=== PATIENT | male | born 1970 | race Hispanic/Latino ===

== ENCOUNTER 2022-03-23 16:28 | Inpatient (IN) | payer OTHER ==
[2022-03-23] VITALS (23 sets, daily range): BP systolic 90–189; BP diastolic 56–126
[~2022-03-23] VITALS: Ht 152.4 cm; Wt 76.7 kg
[2022-03-23] MEDS ORDERED: NITROGLYCERIN 50MG VIAL ONE (17:52)
[2022-03-23] MEDS ORDERED: IOHEXOL-350 50ML VIAL IV ONE (17:52)
[2022-03-23] MEDS ORDERED: BIVALIRUDIN 250 MG/VIAL IV ONE (17:52)
[2022-03-23] MEDS ORDERED: HEPARIN 10,000 UNIT/10ML (1,000 UNIT/ML) VIAL ONE (17:52)
[2022-03-23] MEDS ORDERED: IOHEXOL 350 MG/ML 100ML INFUS..BTL IV ONE (17:53)
[2022-03-23] MEDS ORDERED: LIDOCAINE HCL 400MG/20ML VIAL ONE (17:53)
[2022-03-23] MEDS ORDERED: NICARDIPINE 25MG INJ 25 MG in 0.9% NACL 250ML 240 ML IV STA (18:57)
[2022-03-23] MEDS ORDERED: FENTANYL CITRATE PF 50 MCG/1 ML 2ML VIAL ONE (18:59)
[2022-03-23] MEDS ORDERED: FENTANYL CITRATE PF 50 MCG/1 ML 2ML VIAL IVP SCH (19:00)
[2022-03-23] MEDS ORDERED: FENTANYL 2500MCG+NS 250ML 250 ML IV ONE (19:05)
[2022-03-23] MEDS ORDERED: FUROSEMIDE 20MG VIAL ONE (19:05)
[2022-03-23] MEDS ORDERED: PROPOFOL 1000 MG/100 ML IV STA (19:14)
[2022-03-23] MEDS ORDERED: HEPARIN 25,000 UNITS/250ML D5W 250 ML IV STA (19:14)
[2022-03-23] MEDS ORDERED: ONDANSETRON 4MG INJ IVP PRN (19:30)
[2022-03-23] MEDS ORDERED: POTASSIUM CHLORIDE 20MEQ/100ML 100 ML IV PRN (19:30)
[2022-03-23] MEDS ORDERED: FUROSEMIDE 20MG VIAL IV ONE (19:30)
[2022-03-23] MEDS ORDERED: MAGNESIUM 2GM PREMIX 50ML 50 ML IV SCH (19:30)
[2022-03-23] MEDS ORDERED: [UNRECOGNIZED DRUG - REMARK] MISC SCH (19:30)
[2022-03-23] MEDS ORDERED: FUROSEMIDE 40MG VIAL IV ONE (19:30)
[2022-03-23] MEDS ORDERED: ACETAMINOPHEN 325 MG TAB PO PRN (19:30)
[2022-03-23] MEDS ORDERED: POTASSIUM CHLORIDE 10% ELIXIR 20 MEQ/15 ML UDCUP PO PRN (19:30)
[2022-03-23] MEDS ORDERED: LIDOCAINE HCL-MPF 1% 2ML VIAL IV PRN (19:30)
[2022-03-23] MEDS ORDERED: KCL 20 MEQ ERTAB PO PRN (19:30)
[2022-03-23] MEDS ORDERED: FENTANYL 2500MCG+NS 250ML IV.SOLN IV SCH (19:30)
[2022-03-23] MEDS ORDERED: POTASSIUM PHOSPHATE 15 MMOL in 0.9% NACL 250ML 250 ML IV SCH (19:30)
[2022-03-23 20:00] LABS: ABG BASE EXCESS -7.6 mmol/L (-2.0-3.0); ABG HCO3 24.5 mmol/L (21.0-28.0); ABG PCO2 84 mmHg (35-48)
[2022-03-23] MEDS ORDERED: PHARMACY COMMUNICATION MISC SCH (20:00)
[2022-03-23 20:15] LABS: HEMATOCRIT 56.8 % (42-54); MEAN CORPUSCULAR HEMOGLOBIN 30.5 pg (27.0-33.0); MEAN CORPUSCULAR HGB CONC 32.2 g/dL (32.0-36.0); MEAN CORPUSCULAR VOLUME 94.7 fL (79-99); RED CELL DISTRIBUTION WIDTH 12.8 % (11.0-15.5); WHITE BLOOD COUNT (AUTO) 23.2 K/uL (4.8-10.8)
[2022-03-23 20:46] LABS: CREATININE 3.5 mg/dL (0.5-1.5); PHOSPHORUS 5.5 mg/dL (2.5-4.9); POTASSIUM 4.3 mmol/L (3.5-5.1)
[2022-03-23] MEDS: PROPOFOL 1000 MG/100 ML IV PRN (21:07)
[2022-03-23] MEDS: LEVOFLOXACIN 250 MG/D5W 50ML 50 ML IVPB SCH (22:09)
[2022-03-23] MEDS: METRONIDAZOLE 500MG/100ML BAG 100 ML IVPB SCH (22:09)
[2022-03-23 22:48] LABS: ABG BASE EXCESS -8.2 mmol/L (-2.0-3.0); ABG HCO3 20.1 mmol/L (21.0-28.0); ABG OXYGEN SATURATION 91.3 % (95.0-99.0); ABG PCO2 51 mmHg (35-48)
[2022-03-23 23:53] LABS: AMPHET/METH SCREEN,URINE NEGATIVE (NEGATIVE); BARBITURATE SCREEN, URINE NEGATIVE (NEGATIVE); BENZODIAZEPINES SCREEN,URINE NEGATIVE (NEGATIVE); CANNABINOID SCREEN,URINE NEGATIVE (NEGATIVE); COCAINE SCREEN,URINE NEGATIVE (NEGATIVE); PHENCYCLIDINE SCREEN,URINE NEGATIVE (NEGATIVE)
[2022-03-24] VITALS (27 sets, daily range): BP systolic 91–140; BP diastolic 49–104
[2022-03-24] MEDS: INSULIN HUMULIN R 100 UNIT/ML 3ML SQ SCH ×4 (01:11→23:39)
[2022-03-24 01:17] LABS: HEMATOCRIT 54.8 % (42-54); MEAN CORPUSCULAR HGB CONC 31.9 g/dL (32.0-36.0); MEAN CORPUSCULAR VOLUME 93.8 fL (79-99); RED BLOOD CELL COUNT(AUTO) 5.84 MIL/uL (4.50-6.20); WHITE BLOOD COUNT (AUTO) 23.3 K/uL (4.8-10.8)
[2022-03-24 01:31] LABS: ALBUMIN 2.5 g/dL (3.5-5.0); POTASSIUM 5.9 mmol/L (3.5-5.1); TOTAL PROTEIN, SERUM 6.5 g/dL (6.0-8.3)
[2022-03-24] MEDS: PROPOFOL 1000 MG/100 ML IV PRN ×3 (02:15→16:05)
[2022-03-24 03:24] LABS: ABG BASE EXCESS -5.7 mmol/L (-2.0-3.0); ABG HCO3 19.5 mmol/L (21.0-28.0); ABG OXYGEN SATURATION 99.6 % (95.0-99.0); ABG PCO2 37 mmHg (35-48)
[2022-03-24] MEDS: METRONIDAZOLE 500MG/100ML BAG 100 ML IVPB SCH ×3 (06:25→21:08)
[2022-03-24 06:59] LABS: ABG BASE EXCESS -6.3 mmol/L (-2.0-3.0); ABG HCO3 17.9 mmol/L (21.0-28.0); ABG OXYGEN SATURATION 99.2 % (95.0-99.0); ABG PCO2 32 mmHg (35-48)
[2022-03-24] MEDS ORDERED: CLOPIDOGREL 300MG TAB PO ONE (08:00)
[2022-03-24] MEDS ORDERED: SODIUM BICARB 50MEQ 50ML VIAL IV ONE (08:30)
[2022-03-24] MEDS ORDERED: ASPIRIN 325MG TAB PO SCH (09:00)
[2022-03-24] MEDS ORDERED: ENOXAPARIN SODIUM 40 MG/0.4 ML SYRINGE SQ SCH (09:00)
[2022-03-24] MEDS: PANTOPRAZOLE 40 MG/VIAL IVP SCH (09:25)
[2022-03-24] MEDS ORDERED: IPRATROPIUM 0.5 MG/2.5 ML INH IH ONE (10:57)
[2022-03-24] MEDS ORDERED: KAYEXALATE 15GM/60ML PO ONE (12:30)
[2022-03-24] MEDS ORDERED: FUROSEMIDE 40MG VIAL IV ONE ×2 (12:30)
[2022-03-24] MEDS: HEPARIN 25,000 UNITS/250ML D5W 250 ML IV SCH (14:52)
[2022-03-24] MEDS ORDERED: ACETAMINOPHEN 325 MG TAB PO PRN (16:00)
[2022-03-24] MEDS ORDERED: CHLORDIAZEPOXIDE HCL 25 MG CAP PO PRN (16:00)
[2022-03-24] MEDS ORDERED: LORAZEPAM 2 MG/ML 1 ML VIAL IM PRN (16:00)
[2022-03-24] MEDS ORDERED: ONDANSETRON 4MG INJ IVP PRN (16:00)
[2022-03-24] MEDS ORDERED: MULTIVITAMIN TABLET PO SCH (16:00)
[2022-03-24] MEDS ORDERED: ACETAMINOPHEN 650 MG SUPPOSITORY RC PRN (16:00)
[2022-03-24 16:16] LABS: ABG BASE EXCESS -3.2 mmol/L (-2.0-3.0); ABG HCO3 19.4 mmol/L (21.0-28.0); ABG OXYGEN SATURATION 96.5 % (95.0-99.0); ABG PCO2 29 mmHg (35-48)
[2022-03-24 16:20] LABS: APPEARANCE,URINE SL CLOUDY (CLEAR); BILIRUBIN,URINE SMALL (NEGATIVE); COLOR,URINE YELLOW (YELLOW); GLUCOSE, URINE (UA) NEGATIVE (NEGATIVE); KETONES,URINE 5 mg/dL (NEGATIVE); LEUKOCYTE ESTERASE ,URINE TRACE (NEGATIVE); NITRATE,URINE NEGATIVE (NEGATIVE); OCCULT BLOOD,URINE NEGATIVE (NEGATIVE); PROTEIN,URINE 100 mg/dL (NEGATIVE); UROBILINOGEN,URINE 0.2 mg/dL (0.2-1.0)
[2022-03-24 16:43] LABS: BACTERIA,URINE Few /HPF (None Seen); RBC,URINE 0-1 /HPF (0-1)
[2022-03-24 16:46] LABS: AMORPHOUS SEDIMENT,UR Few /LPF (None Seen); SQUAMOUS EPITHELIAL CELL,UR Few /HPF (0-2)
[2022-03-24 16:47] LABS: YEAST,URINE BUDDING Rare /HPF (None Seen)
[2022-03-24] MEDS ORDERED: ATOR40TA69 PO (16:47)
[2022-03-24] MEDS ORDERED: NIFE30TA98 PO (16:47)
[2022-03-24] MEDS: IPRATROPIUM 0.5 MG/2.5 ML INH IH PRN (18:21)
[2022-03-24 20:05] LABS: INR 1.1 (0.85-1.15); PROTHROMBIN TIME 11.9 SEC (9.6-11.6)
[2022-03-24] MEDS: FENTANYL 2500MCG+NS 250ML IV.SOLN IV SCH (23:42)
[2022-03-25] VITALS (70 sets, daily range): BP systolic 113–174; BP diastolic 69–104
[2022-03-25] MEDS: IPRATROPIUM 0.5 MG/2.5 ML INH IH PRN ×5 (00:10→23:05)
[2022-03-25] MEDS: PROPOFOL 1000 MG/100 ML IV PRN ×2 (00:49→07:55)
[2022-03-25 04:04] LABS: BASOPHILS % (AUTO) 0.2 % (0.0-5.0); HEMATOCRIT 44.6 % (42-54); LYMPHOCYTES % (AUTO) 8.2 % (21.0-51.0); MEAN CORPUSCULAR HEMOGLOBIN 30.2 pg (27.0-33.0); MEAN CORPUSCULAR HGB CONC 33.4 g/dL (32.0-36.0); MEAN CORPUSCULAR VOLUME 90.5 fL (79-99); MONOCYTES % (AUTO) 5.4 % (3.0-13.0); NEUTROPHILS % (AUTO) 85.7 % (40.0-77.0); PLATELET COUNT (AUTO) 160 K/uL (130-400); RED BLOOD CELL COUNT(AUTO) 4.93 MIL/uL (4.50-6.20); WHITE BLOOD COUNT (AUTO) 16.5 K/uL (4.8-10.8)
[2022-03-25 04:09] LABS: ALBUMIN 2.3 g/dL (3.5-5.0); CREATININE 5.8 mg/dL (0.5-1.5); PHOSPHORUS 5.8 mg/dL (2.5-4.9); POTASSIUM 4.5 mmol/L (3.5-5.1)
[2022-03-25] MEDS: INSULIN HUMULIN R 100 UNIT/ML 3ML SQ SCH ×3 (05:13→18:00)
[2022-03-25] MEDS: METRONIDAZOLE 500MG/100ML BAG 100 ML IVPB SCH ×3 (05:13→21:12)
[2022-03-25 07:23] LABS: ABG BASE EXCESS -2.6 mmol/L (-2.0-3.0); ABG OXYGEN SATURATION 96.2 % (95.0-99.0); ABG PCO2 29 mmHg (35-48)
[2022-03-25] MEDS ORDERED: THIAMINE HCL 100 MG/ML 2ML VIAL IVP SCH (09:00)
[2022-03-25] MEDS: PANTOPRAZOLE 40 MG/VIAL IVP SCH (09:27)
[2022-03-25] MEDS: ASPIRIN 81MG CHEW TAB PO SCH (09:27)
[2022-03-25] MEDS: MULTIVITAMIN TABLET PO SCH (09:28)
[2022-03-25] MEDS: CLOPIDOGREL 75MG TAB PO SCH (09:28)
[2022-03-25] MEDS ORDERED: THIAMINE HCL 100 MG/ML 2ML VIAL ONE (09:29)
[2022-03-25] MEDS: THIAMINE HCL 300 MG in 0.9%NACL 50ML 50 ML IV SCH (09:30)
[2022-03-25] MEDS: MIDAZOLAM 100MG-0.9% NS 100ML 100 ML IV PRN (11:28)
[2022-03-25] MEDS ORDERED: COMPOUND IV MISC 1 EACH IVSOLN MISC PRN (11:30)
[2022-03-25] MEDS ORDERED: FLUCONAZOLE 200 MG/NS 100 ML 100 ML IV SCH (11:30)
[2022-03-25] MEDS: HEPARIN 25,000 UNITS/250ML D5W 250 ML IV SCH (15:09)
[2022-03-25] MEDS ORDERED: FENTANYL 2500MCG+NS 250ML IV.SOLN IV SCH (16:00)
[2022-03-25] MEDS ORDERED: FENTANYL 2500MCG+NS 250ML 250 ML IV SCH (16:30)
[2022-03-25] MEDS: CHLORHEXIDINE GLUCONATE 473 ML MOUTHWASH MM SCH (21:00)
[2022-03-25] MEDS: LEVOFLOXACIN 250 MG/D5W 50ML 50 ML IVPB SCH (21:12)
[2022-03-25] MEDS: 0.9%NACL 10ML VIAL IV SCH (21:12)
[2022-03-26] VITALS (97 sets, daily range): BP systolic 135–179; BP diastolic 75–109
[2022-03-26] MEDS: MIDAZOLAM 100MG-0.9% NS 100ML 100 ML IV PRN ×2 (02:20→22:39)
[2022-03-26] MEDS: FENTANYL 2500MCG+NS 250ML IV.SOLN IV SCH (04:22)
[2022-03-26 04:36] LABS: ABG BASE EXCESS -1.2 mmol/L (-2.0-3.0); ABG HCO3 22.6 mmol/L (21.0-28.0); ABG OXYGEN SATURATION 96.4 % (95.0-99.0); ABG PCO2 36 mmHg (35-48)
[2022-03-26 05:51] LABS: BASOPHILS % (AUTO) 0.2 % (0.0-5.0); HEMATOCRIT 44.7 % (42-54); LYMPHOCYTES % (AUTO) 7.1 % (21.0-51.0); MEAN CORPUSCULAR HEMOGLOBIN 30.3 pg (27.0-33.0); MEAN CORPUSCULAR HGB CONC 33.3 g/dL (32.0-36.0); MEAN CORPUSCULAR VOLUME 90.9 fL (79-99); MONOCYTES % (AUTO) 5.8 % (3.0-13.0); NEUTROPHILS % (AUTO) 86.5 % (40.0-77.0); PLATELET COUNT (AUTO) 169 K/uL (130-400); RED BLOOD CELL COUNT(AUTO) 4.92 MIL/uL (4.50-6.20); RED CELL DISTRIBUTION WIDTH 12.8 % (11.0-15.5); WHITE BLOOD COUNT (AUTO) 11.6 K/uL (4.8-10.8)
[2022-03-26] MEDS: INSULIN HUMULIN R 100 UNIT/ML 3ML SQ SCH ×4 (06:00→18:00)
[2022-03-26 06:03] LABS: ALBUMIN 2.3 g/dL (3.5-5.0); CREATININE 6.4 mg/dL (0.5-1.5); POTASSIUM 3.5 mmol/L (3.5-5.1); TOTAL PROTEIN, SERUM 6.3 g/dL (6.0-8.3)
[2022-03-26] MEDS: IPRATROPIUM 0.5 MG/2.5 ML INH IH PRN ×4 (06:26→23:52)
[2022-03-26] MEDS: METRONIDAZOLE 500MG/100ML BAG 100 ML IVPB SCH ×3 (06:26→20:18)
[2022-03-26] MEDS: ASPIRIN 81MG CHEW TAB PO SCH (08:34)
[2022-03-26] MEDS: PANTOPRAZOLE 40 MG/VIAL IVP SCH (08:34)
[2022-03-26] MEDS: CLOPIDOGREL 75MG TAB PO SCH (08:34)
[2022-03-26] MEDS: MULTIVITAMIN TABLET PO SCH (08:34)
[2022-03-26] MEDS: CHLORHEXIDINE GLUCONATE 473 ML MOUTHWASH MM SCH ×2 (08:35→20:19)
[2022-03-26] MEDS: NICARDIPINE 25 MG in 0.9% NACL 250ML IV SCH ×2 (08:53→13:28)
[2022-03-26] MEDS: 0.9%NACL 10ML VIAL IV SCH ×2 (08:56→20:17)
[2022-03-26] MEDS: THIAMINE HCL 300 MG in 0.9%NACL 50ML 50 ML IV SCH (08:57)
[2022-03-26] MEDS ORDERED: AMLODIPINE 5 MG TAB PO ONE (09:30)
[2022-03-26] MEDS ORDERED: METOPROLOL TARTRATE 50 MG TAB PO ONE (10:00)
[2022-03-26] MEDS: ARTIFICAL TEARS SOL 15 ML OU SCH ×2 (10:38→20:18)
[2022-03-26] MEDS: HEPARIN 25,000 UNITS/250ML D5W 250 ML IV SCH (12:33)
[2022-03-26 14:36] LABS: CREATINE KINASE, TOTAL 54 U/L (21-232); MYOGLOBIN 141 ng/mL (10-92)
[2022-03-26] MEDS: NICARDIPINE 25MG INJ 100 MG in 0.9%NACL 100ML 60 ML IV PRN (18:36)
[2022-03-26] MEDS: METOPROLOL TARTRATE 50 MG TAB PO SCH (20:18)
[2022-03-26] MEDS: ATORVASTATIN 40 MG TABLET PO SCH (20:18)
[2022-03-27] VITALS (95 sets, daily range): BP systolic 118–156; BP diastolic 53–100
[2022-03-27 03:32] LABS: BASOPHILS % (AUTO) 0.1 % (0.0-5.0); EOSINOPHILS % (AUTO) 0.4 % (0.0-8.0); HEMATOCRIT 44.1 % (42-54); LYMPHOCYTES % (AUTO) 11.2 % (21.0-51.0); MEAN CORPUSCULAR HGB CONC 33.3 g/dL (32.0-36.0); MONOCYTES % (AUTO) 8.6 % (3.0-13.0); NEUTROPHILS % (AUTO) 79.5 % (40.0-77.0); PLATELET COUNT (AUTO) 202 K/uL (130-400); RED CELL DISTRIBUTION WIDTH 12.7 % (11.0-15.5); WHITE BLOOD COUNT (AUTO) 9.8 K/uL (4.8-10.8)
[2022-03-27 04:03] LABS: ALBUMIN 2.3 g/dL (3.5-5.0); CREATININE 6.4 mg/dL (0.5-1.5); POTASSIUM 3.6 mmol/L (3.5-5.1); TOTAL PROTEIN, SERUM 6.4 g/dL (6.0-8.3)
[2022-03-27] MEDS: NICARDIPINE 25MG INJ 100 MG in 0.9%NACL 100ML 60 ML IV PRN ×3 (05:16→18:27)
[2022-03-27] MEDS: METRONIDAZOLE 500MG/100ML BAG 100 ML IVPB SCH ×3 (05:57→22:06)
[2022-03-27] MEDS: INSULIN HUMULIN R 100 UNIT/ML 3ML SQ SCH ×4 (05:57→16:40)
[2022-03-27 06:31] LABS: ABG BASE EXCESS -0.4 mmol/L (-2.0-3.0); ABG HCO3 23.7 mmol/L (21.0-28.0); ABG OXYGEN SATURATION 95.2 % (95.0-99.0); ABG PCO2 37 mmHg (35-48)
[2022-03-27] MEDS: PANTOPRAZOLE 40 MG/VIAL IVP SCH (08:54)
[2022-03-27] MEDS: ARTIFICAL TEARS SOL 15 ML OU SCH ×2 (08:54→20:40)
[2022-03-27] MEDS: CLOPIDOGREL 75MG TAB PO SCH (08:55)
[2022-03-27] MEDS: AMLODIPINE 5 MG TAB PO SCH (08:55)
[2022-03-27] MEDS: ASPIRIN 81MG CHEW TAB PO SCH (08:55)
[2022-03-27] MEDS: MULTIVITAMIN TABLET PO SCH (08:55)
[2022-03-27] MEDS: HEPARIN 25,000 UNITS/250ML D5W 250 ML IV SCH (08:58)
[2022-03-27] MEDS: CHLORHEXIDINE GLUCONATE 473 ML MOUTHWASH MM SCH ×2 (09:00→20:40)
[2022-03-27] MEDS ORDERED: NON-FORMULARY MEDICATION 1 EACH (Nifedipine (Nifedipine ER) 30 MG) PO SCH (09:00)
[2022-03-27] MEDS: METOPROLOL TARTRATE 50 MG TAB PO SCH ×2 (09:00→20:39)
[2022-03-27 09:13] LABS: OPIATES SCREEN URINE Positive ng/mL (Cutoff=300)
[2022-03-27] MEDS: THIAMINE HCL 300 MG in 0.9%NACL 50ML 50 ML IV SCH (10:48)
[2022-03-27] MEDS: 0.9%NACL 10ML VIAL IV SCH ×2 (10:49→20:39)
[2022-03-27] MEDS: MIDAZOLAM 100MG-0.9% NS 100ML 100 ML IV PRN (14:37)
[2022-03-27] MEDS: DEXMEDETOMIDINE 400MCG/NS100ML IV SCH (17:44)
[2022-03-27] MEDS: ATORVASTATIN 40 MG TABLET PO SCH (20:39)
[2022-03-27] MEDS: LEVOFLOXACIN 250 MG/D5W 50ML 50 ML IVPB SCH (20:39)
[2022-03-28] VITALS (95 sets, daily range): BP systolic 124–165; BP diastolic 61–103
[2022-03-28] MEDS: DEXMEDETOMIDINE 400MCG/NS100ML IV SCH ×2 (02:45→16:45)
[2022-03-28 03:54] LABS: BASOPHILS % (AUTO) 0.2 % (0.0-5.0); EOSINOPHILS % (AUTO) 1.4 % (0.0-8.0); HEMATOCRIT 44.2 % (42-54); LYMPHOCYTES % (AUTO) 14.5 % (21.0-51.0); MEAN CORPUSCULAR HEMOGLOBIN 30.1 pg (27.0-33.0); MEAN CORPUSCULAR HGB CONC 33.5 g/dL (32.0-36.0); MEAN CORPUSCULAR VOLUME 89.8 fL (79-99); MONOCYTES % (AUTO) 14.1 % (3.0-13.0); NEUTROPHILS % (AUTO) 69.3 % (40.0-77.0); PLATELET COUNT (AUTO) 204 K/uL (130-400); RED BLOOD CELL COUNT(AUTO) 4.92 MIL/uL (4.50-6.20); RED CELL DISTRIBUTION WIDTH 12.6 % (11.0-15.5); WHITE BLOOD COUNT (AUTO) 8.6 K/uL (4.8-10.8)
[2022-03-28 04:04] LABS: CREATININE 6.4 mg/dL (0.5-1.5); POTASSIUM 3.6 mmol/L (3.5-5.1)
[2022-03-28 04:11] LABS: ABG BASE EXCESS -2.1 mmol/L (-2.0-3.0); ABG HCO3 21.3 mmol/L (21.0-28.0); ABG PCO2 33 mmHg (35-48)
[2022-03-28] MEDS: METRONIDAZOLE 500MG/100ML BAG 100 ML IVPB SCH ×3 (05:29→21:08)
[2022-03-28] MEDS: INSULIN HUMULIN R 100 UNIT/ML 3ML SQ SCH ×4 (05:35→17:21)
[2022-03-28] MEDS: HEPARIN 25,000 UNITS/250ML D5W 250 ML IV SCH (08:08)
[2022-03-28] MEDS: METOPROLOL TARTRATE 50 MG TAB PO SCH (09:00)
[2022-03-28] MEDS: NICARDIPINE 25MG INJ 100 MG in 0.9%NACL 100ML 60 ML IV PRN (09:20)
[2022-03-28] MEDS: MULTIVITAMIN TABLET PO SCH (09:20)
[2022-03-28] MEDS: PANTOPRAZOLE 40 MG/VIAL IVP SCH (09:20)
[2022-03-28] MEDS: ASPIRIN 81MG CHEW TAB PO SCH (09:21)
[2022-03-28] MEDS: CLOPIDOGREL 75MG TAB PO SCH (09:21)
[2022-03-28] MEDS: CHLORHEXIDINE GLUCONATE 473 ML MOUTHWASH MM SCH ×2 (09:21→21:08)
[2022-03-28] MEDS: ARTIFICAL TEARS SOL 15 ML OU SCH ×2 (09:21→21:08)
[2022-03-28] MEDS: AMLODIPINE 5 MG TAB PO SCH (09:21)
[2022-03-28] MEDS: 0.9%NACL 10ML VIAL IV SCH ×2 (09:22→21:08)
[2022-03-28] MEDS: THIAMINE HCL 300 MG in 0.9%NACL 50ML 50 ML IV SCH (09:34)
[2022-03-28] MEDS: ATORVASTATIN 40 MG TABLET PO SCH (21:08)
[2022-03-29] VITALS (73 sets, daily range): BP systolic 116–158; BP diastolic 56–88
[2022-03-29] MEDS: INSULIN HUMULIN R 100 UNIT/ML 3ML SQ SCH ×5 (00:11→21:30)
[2022-03-29] MEDS: DEXMEDETOMIDINE 400MCG/NS100ML IV SCH ×2 (02:45→16:39)
[2022-03-29] MEDS: NICARDIPINE 25MG INJ 100 MG in 0.9%NACL 100ML 60 ML IV PRN ×2 (02:49→16:38)
[2022-03-29 04:02] LABS: ABG BASE EXCESS -2.3 mmol/L (-2.0-3.0); ABG HCO3 21.4 mmol/L (21.0-28.0); ABG PCO2 34 mmHg (35-48)
[2022-03-29 04:03] LABS: BASOPHILS % (AUTO) 0.2 % (0.0-5.0); EOSINOPHILS % (AUTO) 0.1 % (0.0-8.0); HEMATOCRIT 48.1 % (42-54); LYMPHOCYTES % (AUTO) 8.5 % (21.0-51.0); MEAN CORPUSCULAR HGB CONC 34.1 g/dL (32.0-36.0); MEAN CORPUSCULAR VOLUME 87.9 fL (79-99); MONOCYTES % (AUTO) 2.7 % (3.0-13.0); NEUTROPHILS % (AUTO) 87.9 % (40.0-77.0); PLATELET COUNT (AUTO) 236 K/uL (130-400); RED BLOOD CELL COUNT(AUTO) 5.47 MIL/uL (4.50-6.20); RED CELL DISTRIBUTION WIDTH 12.5 % (11.0-15.5); WHITE BLOOD COUNT (AUTO) 10.2 K/uL (4.8-10.8)
[2022-03-29 04:14] LABS: ALBUMIN 2.5 g/dL (3.5-5.0); POTASSIUM 4.5 mmol/L (3.5-5.1); TOTAL PROTEIN, SERUM 7.2 g/dL (6.0-8.3)
[2022-03-29] MEDS: METRONIDAZOLE 500MG/100ML BAG 100 ML IVPB SCH ×3 (05:25→22:30)
[2022-03-29] MEDS: HEPARIN 25,000 UNITS/250ML D5W 250 ML IV SCH ×2 (07:12→22:41)
[2022-03-29] MEDS: 0.9%NACL 10ML VIAL IV SCH ×2 (07:54→20:44)
[2022-03-29] MEDS: PANTOPRAZOLE 40 MG/VIAL IVP SCH (07:54)
[2022-03-29] MEDS: CHLORHEXIDINE GLUCONATE 473 ML MOUTHWASH MM SCH ×2 (07:55→20:45)
[2022-03-29] MEDS: AMLODIPINE 5 MG TAB PO SCH (07:55)
[2022-03-29] MEDS: CLOPIDOGREL 75MG TAB PO SCH (07:55)
[2022-03-29] MEDS: ASPIRIN 81MG CHEW TAB PO SCH (07:55)
[2022-03-29] MEDS: ARTIFICAL TEARS SOL 15 ML OU SCH ×2 (07:55→20:45)
[2022-03-29] MEDS: THIAMINE HCL 300 MG in 0.9%NACL 50ML 50 ML IV SCH (07:57)
[2022-03-29] MEDS: MULTIVITAMIN TABLET PO SCH (07:57)
[2022-03-29 17:59] LABS: INR 1.05 (0.85-1.15); PROTHROMBIN TIME 11.4 SEC (9.6-11.6)
[2022-03-29] MEDS: LEVOFLOXACIN 250 MG/D5W 50ML 50 ML IVPB SCH (20:44)
[2022-03-29] MEDS: ATORVASTATIN 40 MG TABLET PO SCH (20:45)
[2022-03-30] VITALS (79 sets, daily range): BP systolic 127–170; BP diastolic 58–95
[2022-03-30] MEDS: NICARDIPINE 25MG INJ 100 MG in 0.9%NACL 100ML 60 ML IV PRN ×3 (01:34→16:08)
[2022-03-30 04:25] LABS: BASOPHILS % (AUTO) 0.1 % (0.0-5.0); EOSINOPHILS % (AUTO) 0.1 % (0.0-8.0); HEMATOCRIT 46.8 % (42-54); LYMPHOCYTES % (AUTO) 8.5 % (21.0-51.0); MEAN CORPUSCULAR HGB CONC 33.8 g/dL (32.0-36.0); MONOCYTES % (AUTO) 9.6 % (3.0-13.0); PLATELET COUNT (AUTO) 249 K/uL (130-400); RED BLOOD CELL COUNT(AUTO) 5.26 MIL/uL (4.50-6.20); RED CELL DISTRIBUTION WIDTH 12.5 % (11.0-15.5); WHITE BLOOD COUNT (AUTO) 17.6 K/uL (4.8-10.8)
[2022-03-30 04:47] LABS: ALBUMIN 2.6 g/dL (3.5-5.0); CREATININE 5.2 mg/dL (0.5-1.5); POTASSIUM 3.9 mmol/L (3.5-5.1); TOTAL PROTEIN, SERUM 6.9 g/dL (6.0-8.3)
[2022-03-30] MEDS: INSULIN HUMULIN R 100 UNIT/ML 3ML SQ SCH ×4 (06:13→20:17)
[2022-03-30] MEDS: METRONIDAZOLE 500MG/100ML BAG 100 ML IVPB SCH ×4 (06:17→21:50)
[2022-03-30] MEDS: IPRATROPIUM 0.5 MG/2.5 ML INH IH PRN (07:25)
[2022-03-30 07:41] LABS: ABG HCO3 19.2 mmol/L (21.0-28.0); ABG OXYGEN SATURATION 94.8 % (95.0-99.0); ABG PCO2 33 mmHg (35-48)
[2022-03-30] MEDS: 0.9%NACL 10ML VIAL IV SCH ×2 (08:00→20:17)
[2022-03-30] MEDS: CLOPIDOGREL 75MG TAB PO SCH (08:00)
[2022-03-30] MEDS: PANTOPRAZOLE 40 MG/VIAL IVP SCH (08:00)
[2022-03-30] MEDS: MULTIVITAMIN TABLET PO SCH (08:01)
[2022-03-30] MEDS: ASPIRIN 81MG CHEW TAB PO SCH (08:01)
[2022-03-30] MEDS: AMLODIPINE 5 MG TAB PO SCH (08:01)
[2022-03-30] MEDS: THIAMINE HCL 300 MG in 0.9%NACL 50ML 50 ML IV SCH (08:01)
[2022-03-30] MEDS: ARTIFICAL TEARS SOL 15 ML OU SCH ×2 (08:02→20:17)
[2022-03-30] MEDS ORDERED: FUROSEMIDE 40MG VIAL IV SCH (09:30)
[2022-03-30] MEDS: POLYETHYLENE GLYCOL 3350 17 GM POWD.PACK PO SCH (10:17)
[2022-03-30] MEDS: METOPROLOL TARTRATE 50 MG TAB PO SCH ×2 (10:17→20:17)
[2022-03-30] MEDS: HYDRALAZINE 25MG TABLET PO SCH ×2 (16:55→20:17)
[2022-03-30 17:53] LABS: INR 1.1 (0.85-1.15); PROTHROMBIN TIME 11.9 SEC (9.6-11.6)
[2022-03-30 17:55] LABS: PARTIAL THROMBOPLASTIN TIME 82.7 SEC (26.3-35.5)
[2022-03-30] MEDS: HEPARIN 25,000 UNITS/250ML D5W 250 ML IV SCH (18:16)
[2022-03-30] MEDS: ATORVASTATIN 40 MG TABLET PO SCH (20:17)
[2022-03-31] VITALS (75 sets, daily range): BP systolic 126–182; BP diastolic 55–119
[2022-03-31] MEDS: NICARDIPINE 25MG INJ 100 MG in 0.9%NACL 100ML 60 ML IV PRN ×2 (03:10→06:02)
[2022-03-31 03:46] LABS: BASOPHILS % (AUTO) 0.3 % (0.0-5.0); EOSINOPHILS % (AUTO) 1.4 % (0.0-8.0); HEMATOCRIT 45.6 % (42-54); LYMPHOCYTES % (AUTO) 14.7 % (21.0-51.0); MEAN CORPUSCULAR HEMOGLOBIN 29.7 pg (27.0-33.0); MEAN CORPUSCULAR HGB CONC 33.3 g/dL (32.0-36.0); MEAN CORPUSCULAR VOLUME 89.1 fL (79-99); MONOCYTES % (AUTO) 10.9 % (3.0-13.0); NEUTROPHILS % (AUTO) 72.1 % (40.0-77.0); PLATELET COUNT (AUTO) 254 K/uL (130-400); RED BLOOD CELL COUNT(AUTO) 5.12 MIL/uL (4.50-6.20); RED CELL DISTRIBUTION WIDTH 12.6 % (11.0-15.5); WHITE BLOOD COUNT (AUTO) 10.7 K/uL (4.8-10.8)
[2022-03-31 04:06] LABS: ALBUMIN 2.5 g/dL (3.5-5.0); CREATININE 4.3 mg/dL (0.5-1.5); POTASSIUM 3.9 mmol/L (3.5-5.1); TOTAL PROTEIN, SERUM 6.5 g/dL (6.0-8.3)
[2022-03-31] MEDS: INSULIN HUMULIN R 100 UNIT/ML 3ML SQ SCH ×4 (06:08→20:42)
[2022-03-31] MEDS: ASPIRIN 81MG CHEW TAB PO SCH (08:12)
[2022-03-31] MEDS: MULTIVITAMIN TABLET PO SCH (08:12)
[2022-03-31] MEDS: POLYETHYLENE GLYCOL 3350 17 GM POWD.PACK PO SCH (08:12)
[2022-03-31] MEDS: METOPROLOL TARTRATE 50 MG TAB PO SCH ×2 (08:12→20:44)
[2022-03-31] MEDS: CLOPIDOGREL 75MG TAB PO SCH (08:13)
[2022-03-31] MEDS: 0.9%NACL 10ML VIAL IV SCH ×2 (08:13→20:41)
[2022-03-31] MEDS: HYDRALAZINE 25MG TABLET PO SCH ×3 (08:13→21:38)
[2022-03-31] MEDS: PANTOPRAZOLE 40 MG/VIAL IVP SCH (08:13)
[2022-03-31] MEDS: ARTIFICAL TEARS SOL 15 ML OU SCH ×2 (08:14→21:40)
[2022-03-31] MEDS ORDERED: AMLODIPINE 5 MG TAB PO SCH (09:00)
[2022-03-31] MEDS: CLONIDINE HCL 0.2 MG TABLET PO SCH ×2 (10:19→20:45)
[2022-03-31] MEDS: THIAMINE HCL 300 MG in 0.9%NACL 50ML 50 ML IV SCH (12:16)
[2022-03-31] MEDS: METRONIDAZOLE 500MG/100ML BAG 100 ML IVPB SCH ×2 (13:54→21:39)
[2022-03-31] MEDS ORDERED: TAMSULOSIN HCL 0.4 MG CAP.ER.24H PO SCH ×2 (18:31→20:00)
[2022-03-31] MEDS ORDERED: PHARMACY COMMUNICATION MISC SCH (19:30)
[2022-03-31] MEDS: LEVOFLOXACIN 250 MG/D5W 50ML 50 ML IVPB SCH (20:43)
[2022-03-31] MEDS: NIFEDIPINE ER 30 MG TAB PO SCH (20:43)
[2022-03-31] MEDS: ATORVASTATIN 40 MG TABLET PO SCH (20:44)
[2022-03-31] MEDS ORDERED: CARVEDILOL 12.5 MG TABLET PO SCH (21:00)
[2022-03-31] MEDS ORDERED: METOPROLOL TARTRATE 50 MG TAB PO SCH (21:00)
[2022-03-31] MEDS: ISOSORBIDE DINITRATE 20MG TAB PO SCH (21:38)
[2022-04-01] VITALS (16 sets, daily range): BP systolic 140–159; BP diastolic 52–100
[2022-04-01 04:59] LABS: BASOPHILS % (AUTO) 0.4 % (0.0-5.0); EOSINOPHILS % (AUTO) 2.2 % (0.0-8.0); HEMATOCRIT 43.9 % (42-54); LYMPHOCYTES % (AUTO) 17.7 % (21.0-51.0); MEAN CORPUSCULAR HEMOGLOBIN 29.9 pg (27.0-33.0); MEAN CORPUSCULAR HGB CONC 33.7 g/dL (32.0-36.0); MEAN CORPUSCULAR VOLUME 88.7 fL (79-99); MONOCYTES % (AUTO) 11.1 % (3.0-13.0); NEUTROPHILS % (AUTO) 67.9 % (40.0-77.0); PLATELET COUNT (AUTO) 230 K/uL (130-400); RED BLOOD CELL COUNT(AUTO) 4.95 MIL/uL (4.50-6.20); RED CELL DISTRIBUTION WIDTH 12.9 % (11.0-15.5)
[2022-04-01 05:29] LABS: ALBUMIN 2.3 g/dL (3.5-5.0); CREATININE 3.6 mg/dL (0.5-1.5); TOTAL PROTEIN, SERUM 6.2 g/dL (6.0-8.3)
[2022-04-01] MEDS: METRONIDAZOLE 500MG/100ML BAG 100 ML IVPB SCH ×3 (06:35→21:19)
[2022-04-01] MEDS: INSULIN HUMULIN R 100 UNIT/ML 3ML SQ SCH ×4 (06:51→21:00)
[2022-04-01] MEDS: THIAMINE HCL 300 MG in 0.9%NACL 50ML 50 ML IV SCH (08:25)
[2022-04-01] MEDS: PANTOPRAZOLE 40 MG/VIAL IVP SCH (08:25)
[2022-04-01] MEDS: CLOPIDOGREL 75MG TAB PO SCH (08:26)
[2022-04-01] MEDS: ISOSORBIDE DINITRATE 20MG TAB PO SCH ×2 (08:26→21:19)
[2022-04-01] MEDS: METOPROLOL TARTRATE 50 MG TAB PO SCH ×2 (08:26→21:19)
[2022-04-01] MEDS: TAMSULOSIN HCL 0.4 MG CAP.ER.24H PO SCH (08:26)
[2022-04-01] MEDS: 0.9%NACL 10ML VIAL IV SCH ×2 (08:26→21:17)
[2022-04-01] MEDS: ASPIRIN 81MG CHEW TAB PO SCH (08:26)
[2022-04-01] MEDS: ARTIFICAL TEARS SOL 15 ML OU SCH ×2 (08:27→21:18)
[2022-04-01] MEDS: NIFEDIPINE ER 30 MG TAB PO SCH (08:27)
[2022-04-01] MEDS: MULTIVITAMIN TABLET PO SCH (08:27)
[2022-04-01] MEDS: CLONIDINE HCL 0.2 MG TABLET PO SCH ×2 (08:27→21:24)
[2022-04-01] MEDS: POLYETHYLENE GLYCOL 3350 17 GM POWD.PACK PO SCH (08:28)
[2022-04-01] MEDS: HYDRALAZINE 25MG TABLET PO SCH ×3 (08:30→21:18)
[2022-04-01] MEDS: ATORVASTATIN 40 MG TABLET PO SCH (21:18)
[2022-04-02] VITALS (7 sets, daily range): BP systolic 127–171; BP diastolic 85–112
[2022-04-02 04:02] LABS: HEMATOCRIT 44.2 % (42-54); MEAN CORPUSCULAR HEMOGLOBIN 29.9 pg (27.0-33.0); MEAN CORPUSCULAR HGB CONC 33.9 g/dL (32.0-36.0); MEAN CORPUSCULAR VOLUME 88.2 fL (79-99); RED BLOOD CELL COUNT(AUTO) 5.01 MIL/uL (4.50-6.20); RED CELL DISTRIBUTION WIDTH 12.7 % (11.0-15.5)
[2022-04-02 04:22] LABS: CREATININE 3.1 mg/dL (0.5-1.5); POTASSIUM 4.3 mmol/L (3.5-5.1)
[2022-04-02] MEDS: METRONIDAZOLE 500MG/100ML BAG 100 ML IVPB SCH (05:55)
[2022-04-02] MEDS: INSULIN HUMULIN R 100 UNIT/ML 3ML SQ SCH ×4 (06:35→21:00)
[2022-04-02] MEDS: METOPROLOL TARTRATE 50 MG TAB PO SCH ×2 (08:44→20:27)
[2022-04-02] MEDS: TAMSULOSIN HCL 0.4 MG CAP.ER.24H PO SCH (08:44)
[2022-04-02] MEDS: MULTIVITAMIN TABLET PO SCH (08:44)
[2022-04-02] MEDS: ISOSORBIDE DINITRATE 20MG TAB PO SCH ×2 (08:44→20:26)
[2022-04-02] MEDS: NIFEDIPINE ER 30 MG TAB PO SCH ×2 (08:44→21:49)
[2022-04-02] MEDS: CLOPIDOGREL 75MG TAB PO SCH (08:45)
[2022-04-02] MEDS: ASPIRIN 81MG CHEW TAB PO SCH (08:46)
[2022-04-02] MEDS: CLONIDINE HCL 0.2 MG TABLET PO SCH ×2 (08:46→20:26)
[2022-04-02] MEDS: HYDRALAZINE 25MG TABLET PO SCH ×3 (08:47→20:24)
[2022-04-02] MEDS: PANTOPRAZOLE 40 MG/VIAL IVP SCH (08:47)
[2022-04-02] MEDS: POLYETHYLENE GLYCOL 3350 17 GM POWD.PACK PO SCH (08:47)
[2022-04-02] MEDS: THIAMINE HCL 300 MG in 0.9%NACL 50ML 50 ML IV SCH (08:48)
[2022-04-02] MEDS: ARTIFICAL TEARS SOL 15 ML OU SCH ×2 (08:49→20:18)
[2022-04-02] MEDS: 0.9%NACL 10ML VIAL IV SCH ×2 (09:00→20:18)
[2022-04-02] MEDS ORDERED: NIFEDIPINE ER 30 MG TAB PO SCH (09:30)
[2022-04-02] MEDS: ATORVASTATIN 40 MG TABLET PO SCH (20:26)
[2022-04-03 03:09] VITALS: BP 154/102
[2022-04-03 04:42] LABS: BASOPHILS % (AUTO) 0.2 % (0.0-5.0); EOSINOPHILS % (AUTO) 2.2 % (0.0-8.0); HEMATOCRIT 43.4 % (42-54); LYMPHOCYTES % (AUTO) 18.4 % (21.0-51.0); MEAN CORPUSCULAR HEMOGLOBIN 29.9 pg (27.0-33.0); MEAN CORPUSCULAR HGB CONC 33.9 g/dL (32.0-36.0); MEAN CORPUSCULAR VOLUME 88.2 fL (79-99); MONOCYTES % (AUTO) 8.4 % (3.0-13.0); NEUTROPHILS % (AUTO) 70.4 % (40.0-77.0); PLATELET COUNT (AUTO) 223 K/uL (130-400); RED BLOOD CELL COUNT(AUTO) 4.92 MIL/uL (4.50-6.20); RED CELL DISTRIBUTION WIDTH 12.8 % (11.0-15.5); WHITE BLOOD COUNT (AUTO) 8.5 K/uL (4.8-10.8)
[2022-04-03 04:49] LABS: CREATININE 2.9 mg/dL (0.5-1.5); POTASSIUM 4.3 mmol/L (3.5-5.1)
[2022-04-03] MEDS: INSULIN HUMULIN R 100 UNIT/ML 3ML SQ SCH ×3 (06:09→16:30)
[2022-04-03 08:04] VITALS: BP 157/95
[2022-04-03] MEDS: NIFEDIPINE ER 30 MG TAB PO SCH (08:34)
[2022-04-03] MEDS: HYDRALAZINE 25MG TABLET PO SCH ×2 (08:34→14:28)
[2022-04-03] MEDS: CLOPIDOGREL 75MG TAB PO SCH (08:34)
[2022-04-03] MEDS: ASPIRIN 81MG CHEW TAB PO SCH (08:35)
[2022-04-03] MEDS: TAMSULOSIN HCL 0.4 MG CAP.ER.24H PO SCH (08:35)
[2022-04-03] MEDS: METOPROLOL TARTRATE 50 MG TAB PO SCH (08:35)
[2022-04-03] MEDS: ISOSORBIDE DINITRATE 20MG TAB PO SCH (08:35)
[2022-04-03] MEDS: MULTIVITAMIN TABLET PO SCH (08:36)
[2022-04-03] MEDS: CLONIDINE HCL 0.2 MG TABLET PO SCH (08:36)
[2022-04-03] MEDS: PANTOPRAZOLE 40 MG/VIAL IVP SCH (08:37)
[2022-04-03] MEDS: POLYETHYLENE GLYCOL 3350 17 GM POWD.PACK PO SCH (08:37)
[2022-04-03] MEDS: ARTIFICAL TEARS SOL 15 ML OU SCH (08:38)
[2022-04-03] MEDS: 0.9%NACL 10ML VIAL IV SCH (08:41)
[2022-04-03 11:42] VITALS: BP 123/77
[2022-04-03] MEDS: THIAMINE HCL 300 MG in 0.9%NACL 50ML 50 ML IV SCH (12:16)
[2022-04-03 14:28] VITALS: BP 143/91
[2022-04-03] MEDS ORDERED: METO50 PO (16:09)
[2022-04-03] MEDS ORDERED: HYDR25 PO (16:09)
[2022-04-03] MEDS ORDERED: NIFE-40 PO (16:09)
[2022-04-03] MEDS ORDERED: ISOS20TA10 PO (16:09)
[2022-04-03] MEDS ORDERED: CLON-353 PO (16:09)
[2022-04-03] MEDS ORDERED: ASPI-1005 PO (16:09)
[2022-04-03] MEDS ORDERED: CLOP75TA14 PO (16:09)
[2022-04-03 16:41] VITALS: BP 143/93
== END 2022-04-03 21:00 | disposition home or self-care (01) | DRG 870 ==
LOC: EDSEX → 2CH 18:40 → 2DH 04-01 17:56
PROVIDERS: ADMIT Internal Medicine; ATTEND Internal Medicine
PROC: 5A1955Z Respiratory Ventilation, Greater than 96 Consecutive Hours (ICD-10-PCS; principal; 2022-03-23)
PROC: 0BH17EZ Insertion of Endotracheal Airway into Trachea, Via Natural or Artificial Opening (ICD-10-PCS; 2022-03-23)
PROC: 02HV33Z Insertion of Infusion Device into Superior Vena Cava, Percutaneous Approach (ICD-10-PCS; 2022-03-25)
DX: A41.9 Sepsis, unspecified organism (principal); I21.4 Non-ST elevation (NSTEMI) myocardial infarction; J96.01 Acute respiratory failure with hypoxia; J69.0 Pneumonitis due to inhalation of food and vomit; Z20.822 Contact with and (suspected) exposure to COVID-19; N17.0 Acute kidney failure with tubular necrosis; I50.41 Acute combined systolic (congestive) and diastolic (congestive) heart failure; I16.1 Hypertensive emergency; E87.4 Mixed disorder of acid-base balance; I13.0 Hypertensive heart and chronic kidney disease with heart failure and stage 1 through stage 4 chronic kidney disease, or unspecified chronic kidney disease; Z99.11 Dependence on respirator [ventilator] status; N18.9 Chronic kidney disease, unspecified; I25.5 Ischemic cardiomyopathy; E11.22 Type 2 diabetes mellitus with diabetic chronic kidney disease; E11.65 Type 2 diabetes mellitus with hyperglycemia; E66.9 Obesity, unspecified; E78.5 Hyperlipidemia, unspecified; F10.10 Alcohol abuse, uncomplicated; F14.10 Cocaine abuse, uncomplicated; I25.10 Atherosclerotic heart disease of native coronary artery without angina pectoris; I25.2 Old myocardial infarction; Z74.01 Bed confinement status; Z68.33 Body mass index [BMI] 33.0-33.9, adult
CPT/HCPCS: 36415; 36600; 71045; 74230; 76770; 76775; 80048; 80053; 80305; 81001; 82435; 82550; 82570; 82803; 82947; 82948; 83036; 83605; 83735; 83874; 84100; 84132; 84156; 84295; 84443; 84484; 85018; 85025; 85027; 85610; 85730; 87040; 87071; 87088; 87205; 87635; 87804; 92610; 92611; 93005; 93306; 93356; 93975; 94002; 94003; 94640; 94660; 94664; 94667; 94668; 97039; C1751; C1894; C9113; G0378; J0583; J1450; J1644; J1815; J1940; J1956; J2704; J3010; J3411; J3490; J7050; Q9967